=== PATIENT | female | born 1985 | race Caucasian/White ===

== ENCOUNTER 2021-04-27 06:06 | Emergency (ER) | payer SELFPAY ==
--- NOTE | ~2021-04-27 | CT_ITS ---
EXAMINATION: CT abdomen pelvis w con EXAM DATE: 04/27/2021 08:07 INDICATION: Abdominal pain left-sided, vomiting. History Crohn's disease. TECHNIQUE: Spiral CT of the abdomen and pelvis was performed following intravenous injection of 100 m L Omnipaque 350. Axial, coronal and sagittal images of the abdomen and pelvis were reviewed. The do se-length product (DLP) for this examination was 1013.49 mGy-cm. The exposure was tailored according to patient size (auto mA exposure control), and iterative reconstruction (ASIR) was used as addition al dose reduction technique. There is no prior study for comparison. FINDINGS: The liver, spleen, adrenal glands and pancreas are unremarkable. There are several periphe rally dense gallstones identified. Gallbladder is moderately distended. There are regions of gallblad sisi wall edema or small amount of pericholecystic fluid. No adjacent fat stranding or biliary dilatio n. If acute cholecystitis is clinical possibility, recommend ultrasound. Portal and splenic veins are patent. Kidneys enhance symmetrically. There is no hydronephrosis. T he uterus and ovaries are unremarkable, no adnexal mass. The bladder is unremarkable. There is no r etroperitoneal or pelvic lymphadenopathy. There are no findings to suggest appendicitis. The stomach and small bowel are unremarkable. Termina l ileum also unremarkable. There is expected amount of colonic stool. No free intraperitoneal gas. The heart is normal in size. There are no pericardial or pleural effusions. Small amount of right basilar postinfectious residua. There are no osteoblastic or osteolytic lesions identified. IMPRESSION: 1. Gallbladder wall edema or small pericholecystic fluid. Cholelithiasis. If acute cholecystitis is clinical possibility, recommend ultrasound. 2. Unremarkable bowel. Reviewed, dictated and finalized at location A. IMPRESSION: 1. Gallbladder wall edema or small pericholecystic fluid. Cholelithiasis. If a cute cholecystitis is clinical possibility, recommend ultrasound. 2. Unremarkable bowel.
[2021-04-27 06:29] VITALS: BP 145/89; PULSE 102; RESP 16; O2SAT 97
[2021-04-27 07:22] LABS: Basophils Percent Auto 0.4 % (0.2-1.2); Eosinophils Percent Auto 0.4 % (0-4.4); Hematocrit 43.8 % (37.0-47.0); Hemoglobin 15.2 g/dL (12.0-15.0); Immature Granulocyte Absolute 0.03 K/mm3 (0.00-0.031); Immature Granulocyte Percent A 0.3 % (0-0.5); Lymphocytes Percent Auto 27.9 % (18.3-44.2); Mean Corpuscular HGB Conc 34.7 g/dl (32-36); Mean Corpuscular Hemoglobin 30.7 pg (26-34); Mean Corpuscular Volume 88.5 fl (80-100); Mean Platelet Volume 9.6 fl (7.4-10.4); Monocytes Absolute Auto 0.5 K/mm3 (0.1-0.6); Monocytes Percent Auto 5.4 % (2.6-8.5); Neutrophils Absolute Auto 5.9 K/mm3 (1.3-6.7); Neutrophils Percent Auto 65.6 % (45.5-73.1); Platelet Count Result 340 k/mm3 (150-375); Red Blood Count 4.95 M/mm3 (4.2-5.4); Red Cell Distribution Width 12.6 % (11.5-14.5)
[2021-04-27 07:25] LABS: Add Urine Microscopic? YES; Appearance Urine Clear (Clear); Bacteria Urine Trace /hpf; Bilirubin Urine Negative (Negative); Blood Urine 2+ (Negative); Color Urine Yellow (Yellow); Glucose Urine UA Negative (Negative); Ketones Urine Negative (Negative); Leukocyte Esterase Ur Trace LEU/UL (Negative); Mucus Urine Rare /lpf; Nitrate Urine Negative (Negative); Protein Urine 1+ mg/dL (Negative); Specific Grav Ur 1.021 (1.001-1.035); Squamous Epithelial Cell Urine Many /hpf (Few); Urobilinogen Urine Negative mg/dL (<2.0)
--- NOTE | 2021-04-27 07:28 | ED.ABDPAIN ---
HPI - Abdominal Pain General Chief Complaint: Abdominal Pain Stated Complaint: abdominal pain, nausea/vomiting x 1 month Time Seen by Provider: 04/27/21 07:28 Source: patient Mode of arrival: ambulatory Limitations: no limitations History of Present Illness HPI narrative: 35 years old white female, obese presents with intermittent abdominal pain for over 1 month. Patient denies any fever, chills, nausea, vomiting, diarrhea, constipation, urinary symptoms. Patient denies any aggravating or relieving factors. The pain is dull aching, sometimes on the upper abdomen sometimes lower sometimes right or left. Is random. History of GERD and anxiety/depression. Patient smokes, drinks occasionally, uses marijuana daily. Related Data Allergies Allergy/AdvReac Type Severity Reaction Status Date / Time adhesive tape Allergy Mild Rash Verified 04/27/21 06:39 Sulfa (Sulfonamide Allergy Unknown Unknown Verified 04/27/21 06:39 Antibiotics) sulfanilamide Allergy Unknown Unknown Verified 04/27/21 06:39 tomato Allergy Unknown Hives Verified 04/27/21 06:39 venom-wasp Allergy Unknown Anaphylaxis Verified 04/27/21 06:39 Review of Systems Review of Systems: CONSTITUTIONAL: Denies fever, chills, or sweats. EYES: Denies visual changes, redness, or discharge. ENT: Denies rhinorrhea, congestion, sore throat, or otalgia. CARDIOVASCULAR: Denies chest pain, palpitations, or edema. RESPIRATORY: Denies cough or dyspnea. GASTROINTESTINAL: Denies abdominal pain, nausea, vomiting, or diarrhea. GENITOURINARY: Denies dysuria or hematuria. SKIN: Denies rash or itching. MUSCULOSKELETAL: Denies back pain, joint pain, or myalgia. NEUROLOGIC: Denies headache, numbness, or weakness. PSYCHIATRIC: Denies anxiety or depression. [facility] Family History Family History Father Family history of diabetes mellitus in first degree relative, Onset Age: 38 Patient's father is Grandparent Family history of coronary artery disease Other Family history of lymphoma Social History Social History Smoking status: Light tobacco smoker Second hand tobacco smoke exposure: No Smoking end date: 07/16/11 Alcohol intake: current Substance use type: marijuana Exam Narrative: General appearance: Well-developed, well-nourished Skin: Normal color Head: Normocephalic, nontraumatic Eyes: Clear conjunctiva ENT: Oropharynx normal, ears normal, nose normal Neck: Supple, nontender Chest and respiratory: Airway patent, no respiratory distress, no accessory muscle use Heart: Regular rate/rhythm Abdomen: Soft, diffuse tenderness, no guarding or rebound, quiet bowel sounds, no rash or mass Vascular: Normal peripheral pulses, normal capillary refill. Musculoskeletal: Normal range of motion, nontender back Neurologic: Alert and oriented ?3, MIGRATION SPECIALIST is normal as tested, no gross motor deficit Course Course Emergency Course: Stable Vital Signs Vital signs: Vital Signs Pulse Rate 102 H 04/27/21 06:29 Respiratory Rate 16 04/27/21 06:29 Blood Pressure 145/89 H 04/27/21 06:29 Pulse Oximetry 97 04/27/21 06:29 Pulse Rate 102 H 04/27/21 06:29 Respiratory Rate 16 04/27/21 06:29 Blood Pressure 145/89 H 04/27/21 06:29 Pulse Oximetry 97 04/27/21 06:29 MDM - Abdominal Pain MDM Narrative Medical decision making narrative: Abdominal pain. Anxiety/depression, are my concern. Labs, CT abdomen pelvis with IV contrast ordered. Differential Diagnosis Differential diagnosis: Likely abdominal pain, constipation, diverticulitis and pancreatitis Lab Data Result diag
[2021-04-27 07:34] LABS: Alanine Aminotransferase 21 U/L (4-35); Albumin Level 4.6 g/dL (3.5-5.1); Alkaline Phosphatase 94 U/L (38-126); Anion Gap 10 mmol/L (8-16); Aspartate Amino Transferase 25 U/L (14-36); Bilirubin,Total 0.3 mg/dL (0.2-1.3); Blood Urea Nitrogen 13 mg/dL (7-17); Calcium 9.7 mg/dL (8.4-10.2); Carbon Dioxide 27 mmol/L (22-30); Chloride 102 mmol/L (98-107); Estimated CRCL calculation 108 ml/min; Estimated Glomerular Filt Rate > 60; Glucose 114 mg/dL (65-110); Lipase 78 U/L (23-300); Potassium 3.7 mmol/L (3.4-5.0); Sodium 139 mmol/L (137-145)
[2021-04-27] MEDS: SODIUM CHLORIDE 0.9% IV 1,000 ML 999 ML IV CONT (08:13)
[2021-04-27] MEDS: MORPHINE SULFATE (*CRX) 4 MG/ML INJ IV PUSH (08:13)
[2021-04-27] MEDS: ONDANSETRON INJ 4 MG/2 ML VIAL IV PUSH (08:13)
[2021-04-27] MEDS: KETOROLAC 30 MG/ML VIAL (*BKC) (09:24)
[2021-04-27 09:53] VITALS: BP 150/92; PULSE 90; RESP 16; O2SAT 98
--- NOTE | 2021-04-27 09:53 | PC.NURSE ---
PT INSISTING ON GOING OUT TO HER CAR AND GETTING BELONGINGS. STATES NOBODY IS GETTING INTO MY $70,000 VEHICLE BUT ME! THAT CUNT (REFERRING TO STELLA Myles CHARGE NURSE) WON'T LET ME GO SO UNHOOK MY IV AND I WILL BE RIGHT BACK I PROMISE I INFORMED THE PT THAT WE WILL HAVE TO REMOVE THE ENTIRE IV BECAUSE WE CAN'T BE RESPONSIBLE FOR ACTIONS IN THE PARKING LOT RELATED TO THE IV. PT AGREED TO LET ME REMOVE THE IV AND REITERATED THAT I WILL BE RIGHT BACK. IM LEAVING MY STUFF IN THE ROOM. SOON I MAKE ARRANGEMENTS FOR MY KIDS I WILL BE RIGHT BACK IN IV REMOVED WITH INTACT CANNULA. SITE WRAPPED WITH COBAN DUE TO PT ALLERGIES. PT AMBULATED WITH A BRISK, STEADY GAIT OUT TO HER VEHICLE.
--- NOTE | 2021-04-27 10:35 | ED.ABDPAIN ---
HPI - Abdominal Pain General Chief Complaint: Abdominal Pain Stated Complaint: abdominal pain, nausea/vomiting x 1 month Time Seen by Provider: 04/27/21 07:28 Source: patient Mode of arrival: ambulatory Limitations: no limitations History of Present Illness HPI narrative: Patient was seen earlier today for intermittent abdominal pain for over 1 month. Patient left the ED without permission to smoke outside. Patient was discharged at that time with elopement. CAT scan showed possible acute cholecystitis. Dr. King, the surgeon on-call, recommended that patient can go home on Cipro and low-fat diet to follow-up with him as outpatient. Related Data Allergies Allergy/AdvReac Type Severity Reaction Status Date / Time adhesive tape Allergy Mild Rash Verified 04/27/21 06:39 Sulfa (Sulfonamide Allergy Unknown Unknown Verified 04/27/21 06:39 Antibiotics) sulfanilamide Allergy Unknown Unknown Verified 04/27/21 06:39 tomato Allergy Unknown Hives Verified 04/27/21 06:39 venom-wasp Allergy Unknown Anaphylaxis Verified 04/27/21 06:39 Review of Systems Review of Systems: CONSTITUTIONAL: Denies fever, chills, or sweats. EYES: Denies visual changes, redness, or discharge. ENT: Denies rhinorrhea, congestion, sore throat, or otalgia. CARDIOVASCULAR: Denies chest pain, palpitations, or edema. RESPIRATORY: Denies cough or dyspnea. GASTROINTESTINAL: Denies abdominal pain, nausea, vomiting, or diarrhea. GENITOURINARY: Denies dysuria or hematuria. SKIN: Denies rash or itching. MUSCULOSKELETAL: Denies back pain, joint pain, or myalgia. NEUROLOGIC: Denies headache, numbness, or weakness. PSYCHIATRIC: Denies anxiety or depression. [facility] Family History Family History Father Family history of diabetes mellitus in first degree relative, Onset Age: 38 Patient's father is Grandparent Family history of coronary artery disease Other Family history of lymphoma Social History Social History Smoking status: Light tobacco smoker Second hand tobacco smoke exposure: No Smoking end date: 07/16/11 Alcohol intake: current Substance use type: marijuana Exam Narrative: General appearance: Well-developed, well-nourished, does not look in pain or distress Skin: Normal color Head: Normocephalic, nontraumatic Eyes: Clear conjunctiva ENT: Oropharynx normal, ears normal, nose normal Neck: Supple, nontender Chest and respiratory: Airway patent, no respiratory distress, no accessory muscle use Heart: Regular rate/rhythm Abdomen: Soft, mild tenderness right upper quadrant, no organomegaly, quiet bowel sounds Vascular: Normal peripheral pulses, normal capillary refill. Musculoskeletal: Normal range of motion, nontender back Neurologic: Alert and oriented ?3, DIRECTOR OF INSTITUTIONAL GIVING is normal as tested, no gross motor deficit Course Reevaluation(s) Reevaluation #1: Stable, does not look in pain or distress. Date: 04/27/21 Time: 10:43 Consultations Consultation #1: [facility] Date: 04/27/21 Time: 10:37 Vital Signs Vital signs: Vital Signs Pulse Rate 102 H 04/27/21 06:29 Respiratory Rate 16 04/27/21 06:29 Blood Pressure 145/89 H 04/27/21 06:29 Pulse Oximetry 97 04/27/21 06:29 Pulse Rate 102 H 04/27/21 06:29 Respiratory Rate 16 04/27/21 06:29 Blood Pressure 145/89 H 04/27/21 06:29 Pulse Oximetry 97 04/27/21 06:29 MDM - Abdominal Pain MDM Narrative Medical decision making narrative: Patient had a diagnosis of possible cholecystitis earlier today, came back after smoking cigarettes,
== END 2021-04-27 09:53 | disposition left against medical advice (07) ==
PROVIDERS: Emergency Medicine; Emergency Provider Emergency Medicine; PCP Family Medicine
DX: R10.84 Generalized abdominal pain (principal); K80.20 Calculus of gallbladder without cholecystitis without obstruction; F17.210 Nicotine dependence, cigarettes, uncomplicated
CPT/HCPCS: 36415; 74177; 80053; 81001; 81025; 83690; 85025; 96361; 96374; 96375; 99284; J1885; J2270; J2405; J7030; Q9967

== ENCOUNTER 2021-04-27 10:14 | Emergency (ER) | payer SELFPAY ==
[2021-04-27 10:20] VITALS: BP 131/100; PULSE 109; TEMP 37.1; O2SAT 100
== END 2021-04-27 11:05 | disposition left against medical advice (07) ==
PROVIDERS: Emergency Provider Emergency Medicine; PCP Family Medicine
DX: R10.9 Unspecified abdominal pain (principal)
CPT/HCPCS: 99199

== ENCOUNTER 2024-06-20 13:08 | Outpatient (CLI) | payer BC, SELFPAY ==
--- NOTE | ~2024-06-20 | US_ITS ---
Pelvic ultrasound. Clinical History: Excessive and frequent menstruation Technique: Realtime transabdominal and transvaginal scanning of the pelvis was performed. Color flow Doppler and Doppler spectral analysis were performed. Findings: The uterus is anteverted. The endometrial stripe has a thickness of 5 mm. No focal mass is identified. The right ovary measures 5.3 x 4.2 x 6.6 cm. Probable simple ovarian cyst measuring 5 cm. The left ovary measures 2.7 x 2.5 x 3.0 cm. Probable simple ovarian cyst measuring 2.8 cm. There is no evidence of free fluid in the cul de sac. Impression: Probable 5 cm simple right ovarian cyst and 2.8 cm simple left ovarian cyst. Reviewed, dictated and finalized at [facility]. [employer] Impression: Probable 5 cm simple right ovarian cyst and 2.8 cm simple left ovarian cyst.
== END 2024-06-20 13:09 | disposition home or self-care (01) ==
PROVIDERS: PCP Family Medicine; Visit Provider Obstetrics & Gynecology
DX: N92.0 Excessive and frequent menstruation with regular cycle (principal)
CPT/HCPCS: 76856